=== PATIENT | male | born 1995 | race Hispanic/Latino ===

== ENCOUNTER 2022-08-28 17:31 | Emergency (ER) | payer SELFPAY ==
[2022-08-28] MEDS ORDERED: Oxymetazoline HCl 0.05% (30 ML BOT) ONE (17:52)
== END 2022-08-28 18:30 | disposition home or self-care (01) ==
LOC: NAV ERS 17:31
DX: R04.0 Epistaxis (principal); F17.210 Nicotine dependence, cigarettes, uncomplicated
CPT/HCPCS: 99283